=== PATIENT | female | born 1995 | race Caucasian/White ===

== ENCOUNTER → 2020-04-19 | Outpatient (CLI) | payer BC, OTHER ==
[~2020-04-19] MED LIST: COLACE 100MG C100 MG PO; IBUPROFEN600 MG PO; PRENATAL VITAM1 EAC3 PO
== END ==
LOC: GENOP 10:12
DX: O36.8190 Decreased fetal movements, unspecified trimester, not applicable or unspecified (principal)
CPT/HCPCS: G0463

== ENCOUNTER 2020-07-09 07:18 | Inpatient (IN) | payer BC, OTHER ==
[~2020-07-09] VITALS: Ht 165.1 cm; Wt 81.6 kg
[2020-07-09 09:15] LABS: HEMOGLOBIN 11.2 gm/dl (12.3-15.3); RED BLOOD COUNT 4.31 M/UL (4.00-5.10)
[2020-07-09] MEDS ORDERED: PRENATAL VITAM1 EAC3 PO (10:04)
[2020-07-09] MEDS ORDERED: IBUPROFEN600 MG PO (22:21)
[2020-07-09] MEDS ORDERED: COLACE 100MG C100 MG PO (22:21)
== END 2020-07-11 15:26 | disposition home or self-care (01) | DRG 807 ==
LOC: GENOP 07:18 → OB 08:05
PROVIDERS: ADMIT Obstetrics & Gynecology
PROC: 4A1HX4Z Monitoring of Products of Conception, Cardiac Electrical Activity, External Approach (ICD-10-PCS; principal; 2020-07-09)
PROC: 10E0XZZ Delivery of Products of Conception, External Approach (ICD-10-PCS; 2020-07-09)
PROC: 0HQ9XZZ Repair Perineum Skin, External Approach (ICD-10-PCS; 2020-07-09)
DX: O42.919 Preterm premature rupture of membranes, unspecified as to length of time between rupture and onset of labor, unspecified trimester (principal); Z37.0 Single live birth; Z3A.36 36 weeks gestation of pregnancy; Z20.822 Contact with and (suspected) exposure to COVID-19; O70.0 First degree perineal laceration during delivery
CPT/HCPCS: 36415; 51702; 81001; 82800; 83518; 85014; 85018; 85025; 90471; 90715; J2590; J7120; U0002